=== PATIENT | male | born 1945 | race Caucasian/White ===

== ENCOUNTER 2017-01-10 15:22 | Inpatient (IN) | payer MEDICARE, OTHER ==
[2017-01-14 05:48] LABS: CREATININE 0.7 mg/dL (0.7-1.2); POTASSIUM 4.1 mmol/L (3.5-5.1)
--- NOTE | 2017-01-16 11:15 | NUR ---
PT. DECLINED INVITATION TO THE [facility]. ADVISED PT. THAT A D/C DATE HAD NOT BEEN SET OF YET. PT. WAS IN AGREEMENT.
[2017-01-19 13:17] LABS: CREATININE 0.7 mg/dL (0.7-1.2)
--- NOTE | 2017-01-23 16:58 | NUR ---
MET WITH MR. STAHL TO COMPLETE PAPERWORK FOR DISCHARGE. PT. REQUESTED [facility] FO RPT/OT AND NURSING ASSESSMENT. PER TARYN AT [facility] [phone], PT. [facility] DOES NOT REQUIRE A PREAUTH. [facility] TO DELIEVER A ROLLING WALKER AND 3 IN 1 UPON DISCHARGE. D/C NOTICE AND QUESTIONNAIRE GIVEN.
--- NOTE | 2017-01-24 10:56 | NUR ---
DISCHARGE INSTRUCTIONS GIVEN TO PATIENT VOICED COMPLETE UNDERSTANDING. AWAITING RIDE HOME, CONDITION STABLE.
--- NOTE | 2017-01-24 11:32 | NUR ---
PT. D/C HOME THIS DATE PER HIS REQUEST. [facility] TO DELIVER A ROLLING WALKER AND 3 IN 1. PT. REQUESTS [facility] FOR PT/OT AND NURSING ASSESSMENT. [facility] DOES NOT REQUIRE A PREAUTH. D/C NOTICE AND QUESTIONNAIRE GIVEN.
== END 2017-01-24 11:12 | disposition home health service (06) | DRG 559 ==
LOC: FSNU 15:22
PROVIDERS: Internal Medicine; ADMIT Internal Medicine
DX: S72.001D Fracture of unspecified part of neck of right femur, subsequent encounter for closed fracture with routine healing (principal); J18.9 Pneumonia, unspecified organism; E87.1 Hypo-osmolality and hyponatremia; D51.9 Vitamin B12 deficiency anemia, unspecified; J44.0 Chronic obstructive pulmonary disease with (acute) lower respiratory infection; J44.1 Chronic obstructive pulmonary disease with (acute) exacerbation; I10 Essential (primary) hypertension; E78.5 Hyperlipidemia, unspecified; D50.9 Iron deficiency anemia, unspecified; Z96.641 Presence of right artificial hip joint
CPT/HCPCS: 36415; 80048; 88305; 97110; 97116; 97161; 97165; 97530; 97530-GP; 97535